=== PATIENT | male | born 1945 | race Caucasian/White ===

== ENCOUNTER 2022-04-14 23:42 | Observation (INO) ==
[2022-04-14] MEDS: Nitroglycerin 0.4 MG TAB.SUBL SL SCH (23:59)
[2022-04-15] MEDS ORDERED: Ondansetron 4 MG/2 ML VIAL IVP ONE (00:04)
[2022-04-15] MEDS: Nitroglycerin 0.4 MG TAB.SUBL SL SCH ×2 (00:07→04:18)
[2022-04-15 00:13] LABS: Basophils # 0.1 K/mcL (0.0-0.2); Basophils % 0.6 %; Eosinophils # 0.5 K/mcL (0.0-0.6); Eosinophils % 5.9 %; Hemoglobin 12.4 g/dL (12.9-16.9); Immature Granulocytes % 0.4 % (0-4); Lymphocytes # 1.9 K/mcL (0.6-4.6); Mean Corpuscular HGB Conc 33.5 g/dL (31.6-35.5); Mean Corpuscular Hemoglobin 30.2 pg (28.0-33.3); Mean Platelet Volume 11.1 fL (9.4-12.4); Monocytes # 0.5 K/mcL (0.0-1.3); Neutrophils # 5.1 K/mcL (1.6-8.9); Platelet Count 187 K/mcL (140-400); Red Blood Count 4.11 M/mcL (4.19-5.50); Red Cell Distribution Width 12.9 % (11.5-14.5); Segmented Neutrophils % 63.1 %
[2022-04-15 00:20] LABS: INR 1.1; Prothrombin Time 11.7 Seconds (9.4-12.1)
[2022-04-15 00:22] LABS: Activated Partial Thrombo Time 28.9 Seconds (26.0-36.0)
[2022-04-15 00:34] LABS: BUN/Creatinine Ratio 17 (6-26); Blood Urea Nitrogen 23 mg/dL (8-23); Calcium 9.1 mg/dL (8.6-10.3); Carbon Dioxide 27 mEq/L (23-29); Chloride 97 mEq/L (98-107); Glucose 183 mg/dL (70-105); Osmolality,Calculated 290 (280-300); Potassium 3.8 mEq/L (3.5-5.1); Sodium 136 mEq/L (136-145); eGFR For African Americans > 60 (> 60); eGFR For Non-African Americans 51 (> 60)
[2022-04-15 00:35] LABS: Troponin I < 0.03 ng/mL (< 0.04)
[2022-04-15] MEDS ORDERED: Isovue-370 500 ML BOTTLE IVP ONE (00:59)
[2022-04-15] MEDS ORDERED: *HR* FentaNYL (PF) 100 MCG/2 ML VIAL IVP ONE ×2 (00:59→02:40)
[2022-04-15] MEDS: 0.9 % Sodium Chloride 1,000 ML IVC SCH ×3 (01:37→16:05)
[2022-04-15 03:07] LABS: Alanine Aminotransferase 16 Units/L (7-52); Albumin 4.2 g/dL (3.5-5.7); Albumin/Globulin Ratio 1.7 (1.1-2.2); Alkaline Phosphatase 72 Units/L (34-104); Aspartate Amino Transferase 22 Units/L (13-39); Bilirubin,Indirect 0.5 mg/dL (0.0-1.0); Bilirubin,Total 0.5 mg/dL (0.3-1.0); Globulin 2.5 g/dL (2.4-3.5); Lipase 51 Units/L (11-82); Total Protein 6.7 g/dL (6.4-8.9)
[2022-04-15] MEDS ORDERED: Ondansetron ODT 4 MG TAB.RAPDIS SL PRN (03:24)
[2022-04-15] MEDS ORDERED: Melatonin 3 MG TABLET PO PRN (03:24)
[2022-04-15] MEDS ORDERED: Nitroglycerin 0.4 MG TAB.SUBL SL PRN (03:31)
[2022-04-15] MEDS ORDERED: Dextrose Gel 15 GM/37.5 ML TUBE PO PRN ×2 (03:33)
[2022-04-15] MEDS ORDERED: *HR* Dextrose 50 % in Water (Syg) 50 ML SYRINGE IVP PRN (03:33)
[2022-04-15] MEDS ORDERED: D5% in Water 1,000 ML IVC PRN (03:33)
[2022-04-15] MEDS ORDERED: Morphine Sulfate 2 MG/ML SYRINGE IVP PRN (05:00)
[2022-04-15 05:18] LABS: Hematocrit 33.9 % (37.5-50.1); Hemoglobin 11.4 g/dL (12.9-16.9); Mean Corpuscular HGB Conc 33.6 g/dL (31.6-35.5); Mean Corpuscular Hemoglobin 30.3 pg (28.0-33.3); Mean Corpuscular Volume 90.2 fL (83.0-100.0); Mean Platelet Volume 10.8 fL (9.4-12.4); Platelet Count 170 K/mcL (140-400); Red Blood Count 3.76 M/mcL (4.19-5.50); Red Cell Distribution Width 12.7 % (11.5-14.5); White Blood Count 8.4 K/mcL (4.3-11.1)
[2022-04-15 05:40] LABS: BUN/Creatinine Ratio 19 (6-26); Blood Urea Nitrogen 23 mg/dL (8-23); Calcium 8.4 mg/dL (8.6-10.3); Carbon Dioxide 26 mEq/L (23-29); Chloride 100 mEq/L (98-107); Glucose 167 mg/dL (70-105); Magnesium 2.1 mg/dL (1.6-2.6); Osmolality,Calculated 287 (280-300); Phosphorous 2.9 mg/dL (2.7-4.5); Potassium 3.8 mEq/L (3.5-5.1); Sodium 135 mEq/L (136-145); Troponin I < 0.03 ng/mL (< 0.04); eGFR For African Americans > 60 (> 60); eGFR For Non-African Americans 59 (> 60)
[2022-04-15] MEDS ORDERED: Regadenoson 0.4 MG/5 ML SYRINGE IVP ONE (06:04)
[2022-04-15] MEDS: *HR* Heparin 5,000 UNIT/ML VIAL SQ SCH ×2 (06:15→16:41)
[2022-04-15] MEDS: Insulin LISPRO 300 UNITS/3 ML VIAL SUBQ SCH ×3 (06:16→16:04)
[2022-04-15] MEDS ORDERED: Finasteride 5 MG TABLET PO SCH (09:00)
[2022-04-15] MEDS ORDERED: Aspirin 81 MG TAB.CHEW PO SCH (09:00)
[2022-04-15] MEDS: methocarbamoL 750 MG TABLET PO SCH ×2 (16:41→20:54)
[2022-04-15] MEDS: Sucralfate 1 GM TABLET PO SCH (16:41)
[2022-04-16] MEDS: methocarbamoL 750 MG TABLET PO SCH ×6 (01:03→20:43)
[2022-04-16] MEDS: 0.9 % Sodium Chloride 1,000 ML IVC SCH ×3 (01:16→15:07)
[2022-04-16] MEDS: Insulin LISPRO 300 UNITS/3 ML VIAL SUBQ SCH ×4 (01:36→15:08)
[2022-04-16 03:34] LABS: Hematocrit 34.3 % (37.5-50.1); Hemoglobin 11.6 g/dL (12.9-16.9); Mean Corpuscular HGB Conc 33.8 g/dL (31.6-35.5); Mean Corpuscular Hemoglobin 31.4 pg (28.0-33.3); Mean Platelet Volume 11.2 fL (9.4-12.4); Platelet Count 170 K/mcL (140-400); Red Blood Count 3.69 M/mcL (4.19-5.50); White Blood Count 4.5 K/mcL (4.3-11.1)
[2022-04-16 03:55] LABS: BUN/Creatinine Ratio 13 (6-26); Blood Urea Nitrogen 15 mg/dL (8-23); Calcium 8.7 mg/dL (8.6-10.3); Carbon Dioxide 29 mEq/L (23-29); Chloride 105 mEq/L (98-107); Glucose 160 mg/dL (70-105); Magnesium 2.1 mg/dL (1.6-2.6); Osmolality,Calculated 294 (280-300); Potassium 3.6 mEq/L (3.5-5.1); Sodium 140 mEq/L (136-145); eGFR For African Americans > 60 (> 60); eGFR For Non-African Americans > 60 (> 60)
[2022-04-16] MEDS: *HR* Heparin 5,000 UNIT/ML VIAL SQ SCH ×2 (05:52→17:41)
[2022-04-16] MEDS ORDERED: Isovue-370 500 ML BOTTLE IVP ONE (08:39)
[2022-04-16] MEDS: Sucralfate 1 GM TABLET PO SCH ×2 (10:44→17:41)
[2022-04-16] MEDS: Aspirin Enteric Coated 81 MG Tablet PO SCH (10:44)
[2022-04-16] MEDS: Finasteride 5 MG TABLET PO SCH (10:45)
[2022-04-16] MEDS: Furosemide 40 MG TABLET PO SCH (10:45)
[2022-04-16] MEDS: lisinopriL 20 MG TABLET PO SCH (11:10)
[2022-04-17] MEDS: 0.9 % Sodium Chloride 1,000 ML IVC SCH ×2 (00:30→08:22)
[2022-04-17] MEDS: methocarbamoL 750 MG TABLET PO SCH ×3 (00:35→08:19)
[2022-04-17] MEDS: Insulin LISPRO 300 UNITS/3 ML VIAL SUBQ SCH ×3 (00:44→13:23)
[2022-04-17] MEDS: *HR* Heparin 5,000 UNIT/ML VIAL SQ SCH (05:15)
[2022-04-17 06:43] VITALS: BP 162/73; PULSE 64; TEMP 97.6; O2SAT 95
[2022-04-17] MEDS: Sucralfate 1 GM TABLET PO SCH (08:18)
[2022-04-17] MEDS: Furosemide 40 MG TABLET PO SCH (08:18)
[2022-04-17] MEDS: Aspirin Enteric Coated 81 MG Tablet PO SCH (08:18)
[2022-04-17] MEDS: Finasteride 5 MG TABLET PO SCH (08:19)
[2022-04-17] MEDS: lisinopriL 20 MG TABLET PO SCH (08:19)
== END 2022-04-17 15:26 | disposition home or self-care (01) ==
LOC: 3BNU 23:42 → EMEROOARM 23:42 → SUATTDRO 04-15 03:30 → 3BNU 04-15 04:02 → UNDODISOB 04-16 19:05 → 3BNU 04-16 20:07
PROVIDERS: ADMIT Internal Medicine; ATTEND Family Medicine